=== PATIENT | female | born 1955 | race Caucasian/White ===

== ENCOUNTER 2018-05-16 13:45 | Inpatient (IN) | payer MEDICARE, SELFPAY ==
[2018-05-16 13:47] VITALS: BP 119/84; PULSE 112; RESP 18; TEMP 37.1; O2SAT 97; BMI 25.0
--- NOTE | 2018-05-16 16:00 | RAD_ITS ---
STUDY: X-RAY CHEST REASON FOR EXAM: Female, 62 years old. Weakness and shortness of breath TECHNIQUE: Single AP portable view of the chest. COMPARISON: None. FINDINGS: The lungs are clear and expanded. There is no demonstrated pleural abnormality. Normal size heart. Normal mediastinum and jean claude. Normal visualized pulmonary arteries. Normal visualized aortic arch and descending thoracic aorta. Normal visualized thoracic spine. There is a left-sided intramedullary harjeet in the humerus. There is no demonstrated abnormality of the visualized soft tissue structures of the upper abdomen. RAD/Chest 1 View (Portable) IMPRESSION: Normal x-ray examination of the chest. Electronically Signed: Laina Demarco MD at 16:18 EDT Tel , Service support ,
--- NOTE | 2018-05-16 16:00 | EKG12_ITS ---
Test Reason : WEAKNESS Blood Pressure : / mmHG Vent. Rate : 101 BPM Atrial Rate : 101 BPM P-R Int : 222 ms QRS Dur : 068 ms QT Int : 344 ms P-R-T Axes : 033 077 039 degrees QTc Int : 446 ms Sinus tachycardia with 1st degree A-V block Low voltage QRS Borderline ECG Confirmed by ELENA PERES, [employer] ([id number]), story editor ELI PEOPLES ([id number]) on 05/19/2018 1:41:13 PM Referred By: Jose Miguel Olivares Confirmed By:NATO PARKER MD
--- NOTE | 2018-05-16 16:05 | ED.DCSUM_ITS ---
- ER Visit Summary Date of Service: 05/16/18 Chief Complaint: Generalized weakness unable to ambulate. History of Present Illness: The patient is a 62 F history of MS, hypothyroidism and depression. Per the patient and her she is so weak today she is unable to ambulate. She denies having any nausea, vomiting or diarrhea. She denies any chest pain. No dysuria. She has chronic incontinence. states she is so weak he has had to carry her around the house today. Physical Examination: Older female no acute distress. Vital signs are stable she is tachycardic at 112. Pulse is 97% room air no signs of hypoxia. No distress. H EENT exam unremarkable. Moist wheeze membranes. Neck nontender. No lymphadenopathy. Lungs clear to auscultation bilaterally. Heart regular rhythm no murmur rate about 1.5. Abdomen soft nontender. She is moving all 4 extremities. Upper extremities are neurovascular intact with normal tremors of both week. She can lift her heels off the bed. She is discoloration of both feet which her states is chronic from poor circulation. Calves are nontender without edema. 4 out of 5 in the lower extremities 5 out of 5 in the upper extremities. Back nontender. Neurologically she is awake and alert. With focal bilateral lower extremity weakness. Test Results: Chest x-ray shows no acute abnormality read by myself and the radiologist. EKG sinus tachycardia rate of 101 with no acute signs of NM or ischemia. The normal white count of 10. Hemoglobin 14. No bands. Electrolytes gap is 6 creatinine 0.8. UA positive for infection positive nitrates 5-10 white cells there is contaminant 5-10 epithelial cells but there is 4+ bacteria. Culture was sent. Emergency Department Course and Treatment: Patient treated with a liter normal saline. IV Rocephin. Treatment Plan: I have spoken to the hospitalist and they will evaluate the patient for admission. I will go over all test results with patient. Disposition: Admission Impression: Generalized weakness and unable to ambulate Acute UTI History of MS This note was generated with [employer] dictation software. It may contain incorrect words, spelling, and punctuation that were not noted in review of the chart prior to signing ED Disposition - Plan for ED Patient: Chief Complaint: Weakness Referrals: Jose Daniel Uribe MD [Primary Care Provider] -
[2018-05-16 16:17] VITALS: BP 124/70; PULSE 100; RESP 18; O2SAT 96
[2018-05-16 16:33] LABS: Absolute Lymphocyte Count 1.42 X10^3/ul (0.83-4.51); Absolute Neutrophil Count 8.4 X10^3/uL (2.0-7.7); Basophil# 0.01 X10^3/uL; Basophil% 0.1 % (0-1); Eosinophil# 0.01 X10^3/uL; Eosinophils% 0.1 % (0-5); Hematocrit 44.1 % (37-47); Hemoglobin 14.3 g/dl (12.0-15.0); Lymphocyte # 1.42 X10^3/ul (4.0); Lymphocyte % 13.2 % (19-41); Mean Corp Hgb Conc 32.4 g/gl (32-36); Mean Corpuscular Hgb 29.5 pg (27.0-32.0); Mean Corpuscular Volume 90.9 fL (81-99); Mean Platelet Vol. 10.7 fl (6.2-12.0); Monocyte% 8.4 % (0-10); Neutrophil # 8.36 X10^3/uL (2.7-7.7); Platelet Count 248 K/mm3 (150-450); RBC Distribution Width CV 14.1 % (11.6-14.6); RBC Distribution Width SD 45.9 fl (35.1-43.9); Red Blood Count 4.85 M/mm3 (4.2-5.4); White Blood Count 10.7 K/mm3 (4.4-11.0)
[2018-05-16 16:36] LABS: POSITIVE COUNT NO; POSITIVE DIFFERENTIAL NO; POSITIVE MORPHOLOGY NO
[2018-05-16 16:54] LABS: Anion Gap 6 (5-15); BUN 17 mg/dL (7-18); BUN/Creat Ratio 20.4 RATIO (10-20); Calcium,Total 8.8 mg/dL (8.5-10.1); Chloride 106 mmol/L (98-107); Creatinine, Serum 0.83 mg/dL (0.55-1.02); EST Glomerular Filtration Rate 73 mL/min (>60); Est Glom Filt Rate - Afr Amer 89 mL/min (>60); Estimated Creatinine Clearance 59.61 ml/min; Glucose 108 mg/dL (74-106); Potassium 5.3 mmol/L (3.5-5.1); Sodium Level 138 mmol/L (136-145)
[2018-05-16 17:11] LABS: Mucous, Urine 0 SEEN /hpf (<or=2+)
[2018-05-16 17:26] LABS: Color, Urine Straw (Yellow); Glucose, Dipstick Normal (Normal); Ketone-Dipstick Negative (Negative); Leukocyte Esterase-Dipstick 500 /ul (Negative); Nitrite-Dipstick Positive (Negative); Occult Blood-Urine 25 /ul (Negative); Protein-Dipstick 30 mg/dl (Negative); Urine Bilirubin Dipstick Negative (Negative); Urine Clarity Cloudy (Clear); Urine Urobilinogen Normal (Normal)
[2018-05-16] MEDS: 0.9% Normal Saline 1,000 ML 999 ML IV (17:26)
[2018-05-16 17:37] LABS: Bacteria 4+ /hpf (None Seen); Red Blood Cells-Urine 0-5 SEEN /hpf (0-5); Squamous Epithelial Cells - UA 5-10 SEEN /hpf (5-10); White Blood Cells 5-10 SEEN /hpf (0-5)
[2018-05-16] MEDS: Ceftriaxone 1 GM/50 ML BAG IV (17:57)
[2018-05-16 17:58] VITALS: BP 130/78; PULSE 100; RESP 16; O2SAT 97
[2018-05-16 18:24] VITALS: BMI 25.2
--- NOTE | 2018-05-16 18:24 | PCM.HP.STD ---
<Raymond Reardon - Last Filed: 05/16/18 18:31> Problem List (1) UTI (urinary tract infection) Status: Acute (2) Multiple sclerosis Status: Chronic (3) HLD (hyperlipidemia) Status: Chronic (4) Anxiety Status: Chronic History of Present Illness Date of Admission: 05/16/18 Chief Complaint: fatigue The patient is a 62 year old F with a history of multiple sclerosis, anxiety, hyperlipidemia, who presented to the emergency room with chief complaint of severe worsening of fatigue and weakness over the past 2 days. She states she feels that she overdid it at a family reunion and that she has been so tired that she is sleeping all day. She notes that she is easily fatigued however it is much worse than normal. She has noticed some dysuria, but she has difficulty noticing urinary changes as she is chronically incontinent from the multiple sclerosis she denies fevers or chills. She is not short of breath or coughing. No nausea vomiting diarrhea or abdominal pain. In the ER it appears that she has acute urinary tract infection. [] Past Medical History Past Medical History (Chronic Problems): Chronic Problems Multiple sclerosis (Chronic) HLD (hyperlipidemia) (Chronic) Anxiety (Chronic) Allergies No Known Allergies Allergy (Verified 05/16/18 13:48) Home Medications: Ambulatory Orders Medication Instructions Recorded Atorvastatin Calcium [Lipitor] 10 mg PO DAILY 05/16/18 Cholecalciferol (VIT D3) 1 cap PO DAILY 05/16/18 Clonazepam 0.5 mg PO QHS 05/16/18 Doxycycline Hyclate 20 mg PO BID 05/16/18 Gabapentin [Neurontin] 100 mg PO BID 05/16/18 Ketotifen Fumarate [Zaditor] 1 drop EACH EYE DAILY 05/16/18 Levothyroxine [Synthroid] 75 mcg PO MOTUWETHFRSA 05/16/18 Metronidazole 1 applic TP BID 05/16/18 Propylene Glycol/Peg 400 [Systane 1 drop EACH EYE DAILY 05/16/18 0.3-0.4% Eye Drops] Sertraline HCl [Zoloft] 150 mg PO DAILY 05/16/18 Surgical History: tonsillectomy, - - left arm harjeet Psychiatric History: Anxiety CRIMINAL COURT JUDGE History: No pertinent CRIMINAL COURT JUDGE history Lives: Spouse/ Significant Other Smoking Status: Never smoker Tobacco Use: Non-smoker Alcohol: None Drugs: None - *Family History Maternal History Items: No pertinent history Paternal History Items: No pertinent history Review of Systems Constitutional: Reports: Weakness. Denies: Chills, Fever, Weight Change HEENT: Denies: Head Aches, Sinus Congestion, Sinus Drainage Cardiovascular: Denies: Chest Pain, Palpitations Respiratory: Denies: Cough, Shortness of breath at rest, Sputum production Gastrointestinal: Denies: Abdominal Pain, Nausea, Vomiting Genitourinary: Reports: Dysuria, Incontinence Musculoskeletal: Denies: Joint Pain, Joint Tenderness Skin: Denies: Rash, Wounds Neurological: Denies: Numbness, Tingling, Focal weakness Psychiatric: Denies: Anxiety, Depression, Homicidal Ideations, Suicidal Ideations Hematologic/ Lymphatic: Denies: Easy Bruising, Easy Bleeding VTE Information - Inpt Only VTE Present on Admission: No VTE Mechan Device Prophylaxis: None VTE Pharm Prophylaxis ordered?: Yes Patient Problems: Active and Suspected Problems UTI (urinary tract infection) (Acute) - Physical Exam General: Alert, Oriented x3, Cooperative HEENT: Atraumatic, PERRLA, EOMI, Normocephalic Neck: Supple, No JVD, Negative Carotid Bruits Lungs: Clear to auscultation, Normal air movement Cardiovascular: Regular rate, No murmurs Abdomen: Bowel Sounds Present, Soft, Non Tender Extremities: No edema, Capillary Refill Less than 3 Seconds, - - cyanotic feet, cool to touch. Skin: No rashes, No breakdown Musculoskeletal: No Tenderness to Palpation of Joints or Extremities Neurological: Cranial nerves II-XII grossly intact Psych/Mental Status: Normal Affect, Appropriate, Alert and oriented to time, place, person, mood and affect Vital Signs Temp Pulse Resp BP Pulse Ox 98.7 F 100 16 130/78 H 97 05/16/18 13:47 05/16/18 17:58 05/16/18 17:58 05/16/18 17:58 05/16/18 17:58 Oxygen Delivery Method Room Air Weight: 120 lb Body Mass Index (BMI) 25.0 Laboratory Tests Past 24 Hrs 05/16/18 05/16/18 05/16/18 16:03 16:03 17:02 WBC 10.7 RBC 4.85 Hgb 14.3 Hct 44.1 MCV 90.9 MCH 29.5 MCHC 32.4 RDW 14.1 RDW Differential 45.9 H Plt Count 248 MPV 10.7 Immature Gran % (Auto) 0.200 Neut % (Auto) 78.0 H Lymph % (Auto) 13.2 L Donley % (Auto) 8.4 Eos % (Auto) 0.1 Baso % (Auto) 0.1 Absolute Neuts (auto) 8.4 H Absolute Lymphs (auto) 1.42 Total Counted Not Reportable Sodium 138 Potassium 5.3 H Chloride 106 Carbon Dioxide 26.0 Anion Gap 6 BUN 17 Creatinine 0.83 Estim Creat Clear Calc 59.61 Est GFR (MDRD) Af Amer 89 Est GFR (MDRD) Non-Af 73 BUN/Creatinine Ratio 20.4 H Glucose 108 H Calcium 8.8 Urine Color Straw Urine Clarity Cloudy Urine pH 6.0 Ur Specific [place] 1.020 Urine Protein 30 H Urine Glucose (UA) Normal Urine Ketones Negative Urine Occult Blood 25 H Urine Nitrite Positive H Urine Bilirubin Negative Urine Urobilinogen Normal Ur Leukocyte Esterase 500 H Urine RBC 0-5 SEEN Urine WBC 5-10 SEEN Ur Squamous Epith Cells 5-10 SEEN Urine Bacteria 4+ Urine Mucus 0 SEEN Assessment/Plan All Active Problems UTI (urinary tract infection) (Acute) 1. Acute UTI - Continue Rocephin. + UA, + dysuria. UTI likely accounts for worsening of fatigue/MS symptoms. Follow final culture. No fever or leukocytosis. CXR neg. 2. MS - PTOT. Stable. Weakness likely 2/2 UTI. 3. Hyperkalemia - IV fluids, recheck in AM 4. HLD - statin 5. Anxiety - continue home meds. DVT ppx: lovenox DC planning: PTOT This patient was seen by Raymond Reardon PA-C under the supervision of Doctor Marshall. <Jose Miguel Olivares F - Last Filed: 05/16/18 20:20> History of Present Illness The patient is a 62 year old F [] Past Medical History Allergies No Known Allergies Allergy (Verified 05/16/18 13:48) - Physical Exam Vital Signs Temp Pulse Resp BP Pulse Ox 99.4 F H 106 H 18 135/71 H 96 05/16/18 20:02 05/16/18 20:02 05/16/18 20:02 05/16/18 20:02 05/16/18 20:02 Oxygen Delivery Method Room Air Weight: 120 lb 11.2 oz Body Mass Index (BMI) 25.2 Intake and Output for Last 24 Hours 05/14/18 05/15/18 05/16/18 23:59 23:59 23:59 Intake Total 63 Balance 63 Laboratory Tests Past 24 Hrs 05/16/18 05/16/18 05/16/18 16:03 16:03 17:02 WBC 10.7 RBC 4.85 Hgb 14.3 Hct 44.1 MCV 90.9 MCH 29.5 MCHC 32.4 RDW 14.1 RDW Differential 45.9 H Plt Count 248 MPV 10.7 Immature Gran % (Auto) 0.200 Neut % (Auto) 78.0 H Lymph % (Auto) 13.2 L Donley % (Auto) 8.4 Eos % (Auto) 0.1 Baso % (Auto) 0.1 Absolute Neuts (auto) 8.4 H Absolute Lymphs (auto) 1.42 Total Counted Not Reportable Sodium 138 Potassium 5.3 H Chloride 106 Carbon Dioxide 26.0 Anion Gap 6 BUN 17 Creatinine 0.83 Estim Creat Clear Calc 59.61 Est GFR (MDRD) Af Amer 89 Est GFR (MDRD) Non-Af 73 BUN/Creatinine Ratio 20.4 H Glucose 108 H Calcium 8.8 Urine Color Straw Urine Clarity Cloudy Urine pH 6.0 Ur Specific [place] 1.020 Urine Protein 30 H Urine Glucose (UA) Normal Urine Ketones Negative Urine Occult Blood 25 H Urine Nitrite Positive H Urine Bilirubin Negative Urine Urobilinogen Normal Ur Leukocyte Esterase 500 H Urine RBC 0-5 SEEN Urine WBC 5-10 SEEN Ur Squamous Epith Cells 5-10 SEEN Urine Bacteria 4+ Urine Mucus 0 SEEN Code Visit Addendum: Dr. Olivares I personally examined the patient and reviewed the chart. I agree with the above. 62-year-old female with a history of MS presenting with worsening weakness in her lower extremities. He is usually able to walk with a roller or up against the wall however today her had to carry her. She has been having burning with urination and frequency for the last couple of days and on presentation to the ER she had a UA that was consistent with a urinary tract infection. She was started on IV Rocephin and a urine culture was sent. Her MS is characterized as relapsing and remitting and he was initially diagnosed in the late 1970's she had her first episode of optic neuritis. She is not on any chronic medications for her MS. She has never had a flare of her MS. Because with an outside neurologist and she has has scheduled to have an MRI in the next couple weeks. She is not currently having an MS flare as this is a pseudo-exacerbation of her MS due to the urinary tract infection. Will have PT/OT see her and continue with IV antibiotics and tailor the antibiotics to culture data. Inpatient E&M: 03643 Init Hosp L3
[2018-05-16 18:27] VITALS: BMI 25.2
[2018-05-16] MEDS: 0.9% Normal Saline 1,000 ML 100 ML IV (18:34)
[2018-05-16 18:41] VITALS: BP 122/63; PULSE 95; RESP 18; TEMP 38.1; O2SAT 95
[2018-05-16 19:58] VITALS: O2SAT 96
[2018-05-16 20:02] VITALS: BP 135/71; PULSE 106; RESP 18; TEMP 37.4; O2SAT 96
[2018-05-16] MEDS: Heparin Injection (Vial) 5,000 UNIT/ML VIAL 5000 UNIT SC (21:26)
[2018-05-16] MEDS: Atorvastatin Calcium 10 MG Tablet PO (21:26)
[2018-05-16] MEDS: clonazePAM 0.5 MG Tablet PO (21:26)
[2018-05-16] MEDS: Gabapentin 100 MG Capsule PO (21:26)
[2018-05-17 02:43] VITALS: BP 105/68; PULSE 99; RESP 18; TEMP 37.7; O2SAT 98
[2018-05-17] MEDS: 0.9% Normal Saline 1,000 ML 100 ML IV (05:04)
[2018-05-17] MEDS: Levothyroxine 75 MCG Tablet PO (05:04)
[2018-05-17 06:11] LABS: Absolute Lymphocyte Count 1.64 X10^3/ul (0.83-4.51); Absolute Neutrophil Count 6.4 X10^3/uL (2.0-7.7); Basophil# 0.02 X10^3/uL; Basophil% 0.2 % (0-1); Eosinophil# 0.01 X10^3/uL; Eosinophils% 0.1 % (0-5); Hematocrit 38.8 % (37-47); Hemoglobin 12.7 g/dl (12.0-15.0); Lymphocyte # 1.64 X10^3/ul (4.0); Lymphocyte % 18.3 % (19-41); Mean Corp Hgb Conc 32.7 g/gl (32-36); Mean Corpuscular Volume 91.7 fL (81-99); Monocyte# 0.86 X10^3/uL; Monocyte% 9.6 % (0-10); Neutrophil # 6.39 X10^3/uL (2.7-7.7); Neutrophil % 71.5 % (47-70); Platelet Count 216 K/mm3 (150-450); RBC Distribution Width CV 13.8 % (11.6-14.6); RBC Distribution Width SD 45.6 fl (35.1-43.9); Red Blood Count 4.23 M/mm3 (4.2-5.4)
[2018-05-17 06:28] LABS: Anion Gap 7 (5-15); BUN 10 mg/dL (7-18); BUN/Creat Ratio 14.7 RATIO (10-20); Chloride 110 mmol/L (98-107); Creatinine, Serum 0.68 mg/dL (0.55-1.02); EST Glomerular Filtration Rate 93 mL/min (>60); Est Glom Filt Rate - Afr Amer 112 mL/min (>60); Estimated Creatinine Clearance 73.19 ml/min; Glucose 110 mg/dL (74-106); Potassium 3.6 mmol/L (3.5-5.1); Sodium Level 142 mmol/L (136-145)
[2018-05-17 06:36] LABS: POSITIVE COUNT NO; POSITIVE DIFFERENTIAL NO; POSITIVE MORPHOLOGY NO
[2018-05-17 08:00] VITALS: PULSE 94
[2018-05-17 08:44] VITALS: BP 104/64; PULSE 94; RESP 18; TEMP 36.8; O2SAT 96
[2018-05-17] MEDS: Gabapentin 100 MG Capsule PO ×2 (08:45→18:03)
[2018-05-17] MEDS: Heparin Injection (Vial) 5,000 UNIT/ML VIAL 5000 UNIT SC ×2 (09:36→22:29)
[2018-05-17] MEDS: Sertraline 50 MG Tablet 150 MG PO (09:37)
--- NOTE | 2018-05-17 10:30 | CASEMGMT ---
ARMEN FIGUEROA Face to Face with patient for initial transition planning/care coordination assessment. ARMEN FIGUEROA introduced self and role at [facility]. Patient sitting in chair, alert and oriented. Patient willing to participate in assessment and is able to answer all questions appropriately. Care providers, pharmacy, and demographics verified. Patient lives with in a 2 story home with bed and bath on the first floor. Patient states that her provides care for ADLs. Patient states that she has shower chair, raised toilet seat, cane, rollator, and wheelchair at home. Pat wishes to discharge home with possible HHC. ARMEN FIGUEROA will continue to monitor patient for need for HHC. Patient states she has no further needs or concerns at this time. CM to follow for discharge planning needs that may arise. Disposition Plan: Patient to discharge home with family support and follow-up plans in place. Will monitor for need for HHC Leny KOLB, ARMEN, CM
--- NOTE | 2018-05-17 11:35 | PCM.PROGNOTE ---
Patient Problems: Active and Suspected Problems UTI (urinary tract infection) (Acute) Subjective: No further dysuria. Chronically incontinent. Still very weak. 2 assist getting to and from chair to bed. No fever or chills. - Physical Exam General: Alert, Oriented x3, Cooperative HEENT: Atraumatic, PERRLA, EOMI, Normocephalic Neck: Supple, No JVD, Negative Carotid Bruits Lungs: Clear to auscultation, Normal air movement Cardiovascular: Regular rate, No murmurs Abdomen: Bowel Sounds Present, Soft, Non Tender Extremities: No edema, Capillary Refill Less than 3 Seconds Skin: No rashes, No breakdown Musculoskeletal: No Tenderness to Palpation of Joints or Extremities Neurological: Cranial nerves II-XII grossly intact Psych/Mental Status: Normal Affect, Appropriate, Alert and oriented to time, place, person, mood and affect Vital Signs Temp Pulse Resp BP Pulse Ox 98.3 F 94 18 104/64 96 05/17/18 08:44 05/17/18 08:44 05/17/18 08:44 05/17/18 08:44 05/17/18 08:44 Oxygen Delivery Method Room Air Weight: 120 lb 11.2 oz Body Mass Index (BMI) 25.2 Intake and Output for Last 24 Hours 05/15/18 05/16/18 05/17/18 23:59 23:59 23:59 Intake Total 596 / 596 668 / 668 Balance 596 / 596 668 / 668 Microbiology Past 72 Hours 05/16/18 17:02 Urine Culture - Preliminary Urine Catheter - Catheter GNR lactose overage shortage and damage clerk Laboratory Tests Past 24 Hrs 05/16/18 05/16/18 05/16/18 16:03 16:03 17:02 WBC 10.7 RBC 4.85 Hgb 14.3 Hct 44.1 MCV 90.9 MCH 29.5 MCHC 32.4 RDW 14.1 RDW Differential 45.9 H Plt Count 248 MPV 10.7 Immature Gran % (Auto) 0.200 Neut % (Auto) 78.0 H Lymph % (Auto) 13.2 L [place] % (Auto) 8.4 Eos % (Auto) 0.1 Baso % (Auto) 0.1 Absolute Neuts (auto) 8.4 H Absolute Lymphs (auto) 1.42 Total Counted Not Reportable Sodium 138 Potassium 5.3 H Chloride 106 Carbon Dioxide 26.0 Anion Gap 6 BUN 17 Creatinine 0.83 Estim Creat Clear Calc 59.61 Est GFR (MDRD) Af Amer 89 Est GFR (MDRD) Non-Af 73 BUN/Creatinine Ratio 20.4 H Glucose 108 H Calcium 8.8 Urine Color Straw Urine Clarity Cloudy Urine pH 6.0 Ur Specific [place] 1.020 Urine Protein 30 H Urine Glucose (UA) Normal Urine Ketones Negative Urine Occult Blood 25 H Urine Nitrite Positive H Urine Bilirubin Negative Urine Urobilinogen Normal Ur Leukocyte Esterase 500 H Urine RBC 0-5 SEEN Urine WBC 5-10 SEEN Ur Squamous Epith Cells 5-10 SEEN Urine Bacteria 4+ Urine Mucus 0 SEEN 05/17/18 05/17/18 06:00 06:00 WBC 9.0 RBC 4.23 Hgb 12.7 Hct 38.8 MCV 91.7 MCH 30.0 MCHC 32.7 RDW 13.8 RDW Differential 45.6 H Plt Count 216 MPV 10.0 Immature Gran % (Auto) 0.300 Neut % (Auto) 71.5 H Lymph % (Auto) 18.3 L [place] % (Auto) 9.6 Eos % (Auto) 0.1 Baso % (Auto) 0.2 Absolute Neuts (auto) 6.4 Absolute Lymphs (auto) 1.64 Total Counted Not Reportable Sodium 142 Potassium 3.6 Chloride 110 H Carbon Dioxide 25.0 Anion Gap 7 BUN 10 Creatinine 0.68 Estim Creat Clear Calc 73.19 Est GFR (MDRD) Af Amer 112 Est GFR (MDRD) Non-Af 93 BUN/Creatinine Ratio 14.7 Glucose 110 H Calcium 8.0 L Urine Color Urine Clarity Urine pH Ur Specific [place] Urine Protein Urine Glucose (UA) Urine Ketones Urine Occult Blood Urine Nitrite Urine Bilirubin Urine Urobilinogen Ur Leukocyte Esterase Urine RBC Urine WBC Ur Squamous Epith Cells Urine Bacteria Urine Mucus Medical Necessity - Tobacco Use Smoking Status: Never smoker Tobacco Use: Non-smoker Assessment/Plan All Active Problems UTI (urinary tract infection) (Acute) 1. Acute UTI - Rocephin. Follow culture - GNR >100,000. No WBC. No further fever. Dysuria resolved. 2. MS - PTOT. Stable. Weakness likely 2/2 UTI. 3. Hyperkalemia - resolved with fluids. 4. HLD - statin 5. Anxiety - continue home meds. DVT ppx: lovenox DC planning: PTOT This patient was seen by Raymond Reardon PA-C under the supervision of Doctor Goncalves.
--- NOTE | 2018-05-17 13:00 | CASEMGMT ---
Per ODALIS Garcia, patient requests SNF referral to be sent to [facility]. Voicemail for Micaela, admissions re: referral and that if facility can accept patient, pre-cert can be initiated. Referral faxed, confirmation rec'd. Angelina Dunn LPN Clinical Support
--- NOTE | 2018-05-17 13:12 | CASEMGMT ---
Social Work Note Pt's Azam requesting to speak to this worker about SNF. SW met with pt and pt's . Pt gave this worker permission to talk to her in front of her . SW explained SNF options in network with pt's insurance. Pt and pt's would like a referral sent to [facility]. SW explained referral process and pre-cert. Azam provided cell phone number [phone]. SW placed a call to [facility] to send referral. Plan: [facility] pending acceptance and pre-cert Leny Gentile PROFESSOR OF RHETORIC, BATTER DEPOSITOR
[2018-05-17 14:00] VITALS: PULSE 68
--- NOTE | 2018-05-17 14:17 | CHAPLAIN ---
Type of Pastoral Visit _x__ Initial Visit ___ Follow-up Visit ___ On-call Visit ___ General Patient Visit ___ Spiritual Assessment ___ Family Conference ___ Bereavement ___ Rapid Response ___ Code Blue ___ Other (describe below) Pastoral Care Referral From _x__ Patient ___ Family ___ Nurse ___ Physician ___ Excellence Leader ___ Telecommunications Line Installer ___ Other (describe below) Sacrament/Intervention _x__ Active listening ___ Anointing ___ Jehovah'S Witness ___ Bereavement ___ Communion ___ Martita exploration ___ _x__ Life review ___ Prayer ___ Reconciliation ___ Sacrament of Sick ___ Supportive presence ___ Wedding ___ Other (describe below) Pastoral Comments
[2018-05-17 14:42] VITALS: BP 117/65; PULSE 92; RESP 18; TEMP 37.3; O2SAT 95
--- NOTE | 2018-05-17 15:24 | CASEMGMT ---
Social Work Note SW received message from Micaela at [facility] stating she is able to accept pt and will submit for pre-cert. SW updated pt of this. Pt requesting to have this worker call her Azam to update him on this. ODALIS placed a call to Azam and updated him on acceptance to [facility] and pre-cert will have to be obtained before pt can be discharged. Azam states understanding. Plan: [facility] pending pre-cert Leny Gentile MSW, SENIOR VICE PRESIDENT & GENERAL COUNSEL
[2018-05-17 20:03] VITALS: BP 102/58; PULSE 96; RESP 16; TEMP 37; O2SAT 96
[2018-05-17] MEDS: clonazePAM 0.5 MG Tablet PO (22:27)
[2018-05-17] MEDS: Atorvastatin Calcium 10 MG Tablet PO (22:29)
[2018-05-18 03:45] VITALS: BP 92/65; PULSE 81; RESP 14; TEMP 37.6; O2SAT 93
[2018-05-18] MEDS: Levothyroxine 75 MCG Tablet PO (07:02)
[2018-05-18 07:27] VITALS: BP 106/62; PULSE 77; RESP 18; TEMP 37.8; O2SAT 94
[2018-05-18] MEDS: Gabapentin 100 MG Capsule PO (08:35)
[2018-05-18] MEDS: Heparin Injection (Vial) 5,000 UNIT/ML VIAL 5000 UNIT SC (08:36)
[2018-05-18] MEDS: Sertraline 50 MG Tablet 150 MG PO (08:37)
--- NOTE | 2018-05-18 13:34 | PCM.PROGNOTE ---
Patient Problems: Active and Suspected Problems UTI (urinary tract infection) (Acute) Subjective: Low grade fever overnight. She remains weak and is planning to go to [facility] at discharge. She has no further dysuria. She is growing citrobacter susceptible to rocephin. - Physical Exam General: Alert, Oriented x3, Cooperative HEENT: Atraumatic, PERRLA, EOMI, Normocephalic Neck: Supple, No JVD, Negative Carotid Bruits Lungs: Clear to auscultation, Normal air movement Cardiovascular: Regular rate, No murmurs Abdomen: Bowel Sounds Present, Soft, Non Tender Extremities: No edema, Capillary Refill Less than 3 Seconds Skin: No rashes, No breakdown Musculoskeletal: No Tenderness to Palpation of Joints or Extremities Neurological: Cranial nerves II-XII grossly intact Psych/Mental Status: Normal Affect, Appropriate, Alert and oriented to time, place, person, mood and affect Vital Signs Temp Pulse Resp BP Pulse Ox 100.0 F H 77 18 106/62 94 05/18/18 07:27 05/18/18 07:27 05/18/18 07:27 05/18/18 07:27 05/18/18 07:27 Oxygen Delivery Method Room Air Weight: 120 lb 11.2 oz Body Mass Index (BMI) 25.2 Intake and Output for Last 24 Hours 05/16/18 05/17/18 05/18/18 23:59 23:59 23:59 Intake Total 596 / 596 1475 / 1475 Balance 596 / 596 1475 / 1475 Microbiology Past 72 Hours 05/16/18 17:02 Urine Culture - Final Urine Catheter - Catheter Citrobacter freundii Medical Necessity - Tobacco Use Smoking Status: Never smoker Tobacco Use: Non-smoker Assessment/Plan All Active Problems UTI (urinary tract infection) (Acute) 1. Acute UTI - Rocephin. Follow culture - Citrobacter >100,000. No WBC. No further fever. Dysuria resolved. 3rd dose rocephin today, start omnicef tomorrow continue for 10 days total. Monitor for further fever. 2. MS - PTOT. Stable. Weakness likely 2/2 UTI. 3. Hyperkalemia - resolved with fluids. 4. HLD - statin 5. Anxiety - continue home meds. DVT ppx: lovenox DC planning: Placement in [facility]. This patient was seen by Raymond Reardon PA-C under the supervision of Doctor Goncalves.
[2018-05-18 14:23] VITALS: BP 98/44; PULSE 93; RESP 18; TEMP 36.6; O2SAT 98
--- NOTE | 2018-05-18 14:56 | CASEMGMT ---
Social Work Note ODALIS received message from Micaela at [facility] that pre-cert has been obtained and pt is able to discharge today. ODALIS updated physician. SW completed convalescent 7000 in HENS. Original in pt's chart. This worker will be off the floor for the rest of the day. Charge Nurse updated that once physician puts in discharge order and completes paperwork, pt is able to discharge to [facility] today. Green sheet on chart. ODALIS placed a call to Micaela at [facility] and updated her that pt should be discharged to [facility] today. Plan: Discharge to [facility] today Leny Gentile HEMMER CHAINSTITCH, IN TUBE CONVERSION TECHNICIAN
--- NOTE | 2018-05-18 15:29 | PCM.TXEXTCAR ---
- Diet 05/16/18 18:16 Diet: Regular Diet Food consistency:: Regular Liquid Consistency:: Regular/Thin - Routine Orders/Code Status Suppository Type: Dulcolax 10mg Suppository Frequency: Daily PRN Routine Lab Work: CBC - 1 week, BMP - 1 week Code Status: Full Code - Wound(s) BLE Wound Type: Puncture - Therapies Physical Therapy: Eval and Treat Occupational Therapy: Eval and Treat - Problem/Diagnosis (1) UTI (urinary tract infection) Status: Acute Current Visit: Yes (2) Multiple sclerosis Status: Chronic Current Visit: Yes (3) HLD (hyperlipidemia) Status: Chronic Current Visit: Yes (4) Anxiety Status: Chronic Current Visit: Yes - Allergies/Procedures Done in Hospital Allergies/Adverse Reactions: Allergies No Known Allergies Allergy (Verified 05/16/18 13:48) Procedures: None - Type of Care/Length of Stay Estimated LOS: Convalescent Care Less Than 30 days Type of Care Needed: Skilled Rehab Potential: Fair Prognosis: Fair - Additional Orders/Day of Discharge Day of Discharge: 05/18/18 - Dietary and Speech Recommendations Dietitian Recommendations/Changes: Rec diet change to Cardiac d/t pmhx. Will provide ONS medpass for increased nutrition if consumed - Follow Up Care Primary Care Physician: Jose Daniel Uribe MD [Primary Care Provider] - Please follow up with your Primary Care Physician in: 1-2 weeks
--- NOTE | 2018-05-18 15:30 | PCM.DC.SUM ---
Discharge Date and Diagnosis - Problem List Patient Problems: Active and Suspected Problems UTI (urinary tract infection) (Acute) Date of Admission: 05/16/18 Date of Discharge: 05/18/18 - Primary Discharge Diagnosis Active and Suspected Problems UTI (urinary tract infection) (Acute) Multiple sclerosis Debility with inability to ambulate Hyperkalemia resolved Hyperlipidemia Anxiety - Secondary Discharge Diagnosis Chronic Problems Multiple sclerosis (Chronic) HLD (hyperlipidemia) (Chronic) Anxiety (Chronic) Hospital Course and Treatment Imaging Results: RAD/Chest 1 View (Portable) IMPRESSION: Normal x-ray examination of the chest. Operations: None Procedures: None Summary of Care Provided: Hospital course: The patient is a 62 year old F with past medical history of MS, ambulatory with a Rollator, anxiety, hyperlipidemia who presented to the emergency room with severe weakness and dysuria. She is found to have a positive urinalysis and fever. It was felt that her symptoms were likely secondary to acute UTI worsening her underlying MS. She was started on Rocephin and admitted to the medical surgical floor. Urine culture demonstrated greater than 100,000 of Citrobacter freundii susceptible to Rocephin. She received 3 doses of IV Rocephin while here and was transitioned to 7 more days of Omnicef. She unfortunately remained severely debilitated with difficulty even standing and getting to a chair without the assistance. He was felt that she would require further custodial before going home. Patient was agreeable and was discharged to custodial in stable condition. Please follow up with your PCP in 1-2 weeks. This patient was seen by Raymond Reardon PA-C under the supervision of Doctor Ivanna. [] Patient Problems: Active and Suspected Problems UTI (urinary tract infection) (Acute) - Physical Exam General: Alert, Oriented x3, Cooperative HEENT: Atraumatic, PERRLA, EOMI, Normocephalic Neck: Supple, No JVD, Negative Carotid Bruits Lungs: Clear to auscultation, Normal air movement Cardiovascular: Regular rate, No murmurs Abdomen: Bowel Sounds Present, Soft, Non Tender Extremities: No edema, Capillary Refill Less than 3 Seconds Skin: No rashes, No breakdown Musculoskeletal: No Tenderness to Palpation of Joints or Extremities Neurological: Cranial nerves II-XII grossly intact Psych/Mental Status: Normal Affect, Appropriate Vital Signs Temp Pulse Resp BP Pulse Ox 97.9 F 93 18 98/44 L 98 05/18/18 14:23 05/18/18 14:23 05/18/18 14:23 05/18/18 14:23 05/18/18 14:23 Oxygen Delivery Method Room Air Weight: 120 lb 11.2 oz Body Mass Index (BMI) 25.2 Intake and Output for Last 24 Hours 05/16/18 05/17/18 05/18/18 23:59 23:59 23:59 Intake Total 596 / 596 1475 / 1475 Balance 596 / 596 1475 / 1475 Microbiology Past 72 Hours 05/16/18 17:02 Urine Culture - Final Urine Catheter - Catheter Citrobacter freundii Discharge Diet: No Restrictions Discharge Activity: Return to Normal Activity Home Medications: Medications to take at Discharge Atorvastatin Calcium [Lipitor] 10 mg PO DAILY 05/16/18 Cholecalciferol (VIT D3) 1 cap PO DAILY 05/16/18 Clonazepam 0.5 mg PO QHS 05/16/18 Gabapentin [Neurontin] 100 mg PO BID 05/16/18 Ketotifen Fumarate [Zaditor] 1 drop EACH EYE DAILY 05/16/18 Levothyroxine [Synthroid] 75 mcg PO MOTUWETHFRSA 05/16/18 Metronidazole 1 applic TP BID 05/16/18 Propylene Glycol/Peg 400 [Systane 0.3-0.4% Eye Drops] 1 drop EACH EYE DAILY 05/16/18 Sertraline HCl [Zoloft] 150 mg PO DAILY 05/16/18 Cefdinir [Omnicef [equiv]] 300 mg PO Q12 #14 capsule 05/18/18 Ensure Enlive 120 ml PO 4X/DAY liquid 05/18/18 Following Prescrptions Were Given to Patient: Cefdinir [Omnicef [equiv]] 300 mg PO Q12 #14 capsule Primary Care Physician: Jose Daniel Uribe MD [Primary Care Provider] - Please follow up with your Primary Care Physician in: 1-2 weeks Disposition: Long Term facility Minutes spent on discharge:: 35 Patient Condition:: Stable Medical Necessity - Tobacco Use Smoking Status: Never smoker Tobacco Use: Non-smoker Meaningful Use Info Meaningful Use Diagnoses (Choose all that apply): None applicable
--- NOTE | 2018-05-18 15:34 | DS.PCM_ITS ---
Discharge Date and Diagnosis - Problem List Patient Problems: Active and Suspected Problems UTI (urinary tract infection) (Acute) Date of Admission: 05/16/18 Date of Discharge: 05/18/18 - Primary Discharge Diagnosis Active and Suspected Problems UTI (urinary tract infection) (Acute) Multiple sclerosis Debility with inability to ambulate Hyperkalemia resolved Hyperlipidemia Anxiety - Secondary Discharge Diagnosis Chronic Problems Multiple sclerosis (Chronic) HLD (hyperlipidemia) (Chronic) Anxiety (Chronic) Hospital Course and Treatment Imaging Results: RAD/Chest 1 View (Portable) IMPRESSION: Normal x-ray examination of the chest. Operations: None Procedures: None Summary of Care Provided: Hospital course: The patient is a 62 year old F with past medical history of MS, ambulatory with a Rollator, anxiety, hyperlipidemia who presented to the emergency room with severe weakness and dysuria. She is found to have a positive urinalysis and fever. It was felt that her symptoms were likely secondary to acute UTI worsening her underlying MS. She was started on Rocephin and admitted to the medical surgical floor. Urine culture demonstrated greater than 100,000 of Citrobacter freundii susceptible to Rocephin. She received 3 doses of IV Rocephin while here and was transitioned to 7 more days of Omnicef. She unfortunately remained severely debilitated with difficulty even standing and getting to a chair without the assistance. He was felt that she would require further care home before going home. Patient was agreeable and was discharged to care home in stable condition. Please follow up with your PCP in 1-2 weeks. This patient was seen by Raymond Reardon PA-C under the supervision of Doctor Ivanna. [] Patient Problems: Active and Suspected Problems UTI (urinary tract infection) (Acute) - Physical Exam General: Alert, Oriented x3, Cooperative HEENT: Atraumatic, PERRLA, EOMI, Normocephalic Neck: Supple, No JVD, Negative Carotid Bruits Lungs: Clear to auscultation, Normal air movement Cardiovascular: Regular rate, No murmurs Abdomen: Bowel Sounds Present, Soft, Non Tender Extremities: No edema, Capillary Refill Less than 3 Seconds Skin: No rashes, No breakdown Musculoskeletal: No Tenderness to Palpation of Joints or Extremities Neurological: Cranial nerves II-XII grossly intact Psych/Mental Status: Normal Affect, Appropriate Vital Signs Temp Pulse Resp BP Pulse Ox 97.9 F 93 18 98/44 L 98 05/18/18 14:23 05/18/18 14:23 05/18/18 14:23 05/18/18 14:23 05/18/18 14:23 Oxygen Delivery Method Room Air Weight: 120 lb 11.2 oz Body Mass Index (BMI) 25.2 Intake and Output for Last 24 Hours 05/16/18 05/17/18 05/18/18 23:59 23:59 23:59 Intake Total 596 / 596 1475 / 1475 Balance 596 / 596 1475 / 1475 Microbiology Past 72 Hours 05/16/18 17:02 Urine Culture - Final Urine Catheter - Catheter Citrobacter freundii Discharge Diet: No Restrictions Discharge Activity: Return to Normal Activity Home Medications: Medications to take at Discharge Atorvastatin Calcium [Lipitor] 10 mg PO DAILY 05/16/18 Cholecalciferol (VIT D3) 1 cap PO DAILY 05/16/18 Clonazepam 0.5 mg PO QHS 05/16/18 Gabapentin [Neurontin] 100 mg PO BID 05/16/18 Ketotifen Fumarate [Zaditor] 1 drop EACH EYE DAILY 05/16/18 Levothyroxine [Synthroid] 75 mcg PO MOTUWETHFRSA 05/16/18 Metronidazole 1 applic TP BID 05/16/18 Propylene Glycol/Peg 400 [Systane 0.3-0.4% Eye Drops] 1 drop EACH EYE DAILY 05/16/18 Sertraline HCl [Zoloft] 150 mg PO DAILY 05/16/18 Cefdinir [Omnicef [equiv]] 300 mg PO Q12 #14 capsule 05/18/18 Ensure Enlive 120 ml PO 4X/DAY liquid 05/18/18 Following Prescrptions Were Given to Patient: Cefdinir [Omnicef [equiv]] 300 mg PO Q12 #14 capsule Primary Care Physician: Jose Daniel Uribe MD [Primary Care Provider] - Please follow up with your Primary Care Physician in: 1-2 weeks Disposition: [facility] facility Minutes spent on discharge:: 35 Patient Condition:: Stable Medical Necessity - Tobacco Use Smoking Status: Never smoker Tobacco Use: Non-smoker Meaningful Use Info Meaningful Use Diagnoses (Choose all that apply): None applicable
--- NOTE | 2018-05-18 16:35 | NURSING ---
REPORT CALLED TO MATTHEW @ [facility]
[2018-05-18 17:10] VITALS: BP 98/44; PULSE 93; RESP 18; TEMP 36.6; O2SAT 98
== END 2018-05-18 17:08 | disposition skilled nursing facility (03) | DRG 690 ==
LOC: ED 16:13 → MS3 17:54
PROVIDERS: Admitting Provider Family Medicine; Emergency Provider Emergency Medicine; Family Provider Family Medicine; PCP Family Medicine; Referring Provider Family Medicine; Visit Provider Internal Medicine
DX: N30.00 Acute cystitis without hematuria (principal); F41.9 Anxiety disorder, unspecified; E78.5 Hyperlipidemia, unspecified; E87.5 Hyperkalemia; G35 Multiple sclerosis; E03.9 Hypothyroidism, unspecified; B96.89 Other specified bacterial agents as the cause of diseases classified elsewhere; R53.81 Other malaise
CPT/HCPCS: 36415; 71045; 80048; 81001; 85025; 87077; 87086; 87088; 87186; 93005; 97162; 97166; 97530; 97802; 99285; J7030; J7050; P9612; A4216; G8978; G8979; G8987; G8988; J0696

== ENCOUNTER → 2019-05-22 18:00 | Outpatient (CLI) | payer MEDICARE, SELFPAY | PROVIDERS: Family Provider Family Medicine; PCP Family Medicine; Referring Provider Urology; Visit Provider Urology | DX: R82.998 Other abnormal findings in urine (principal) | CPT/HCPCS: 87077; 87086; 87088; 87186 ==